=== PATIENT | female | born 1955 | race Caucasian/White ===

== ENCOUNTER → 2020-10-16 12:49 | Outpatient (BNVA) | payer OTHER, SELFPAY | PROVIDERS: PCP Internal Medicine; Visit Provider Nurse Practitioner Family | DX: M47.27 Other spondylosis with radiculopathy, lumbosacral region (principal); M46.1 Sacroiliitis, not elsewhere classified | CPT/HCPCS: 99202 ==

== ENCOUNTER → 2020-10-31 12:55 | Outpatient (BNVA) | payer OTHER, SELFPAY | PROVIDERS: PCP Internal Medicine; Visit Provider Nurse Practitioner Family | DX: M47.27 Other spondylosis with radiculopathy, lumbosacral region (principal); M46.1 Sacroiliitis, not elsewhere classified | CPT/HCPCS: 99212 ==

== ENCOUNTER → 2020-11-17 15:48 | Outpatient (BNVA) | payer OTHER, SELFPAY | PROVIDERS: PCP Internal Medicine; Visit Provider Nurse Practitioner Family | DX: M47.27 Other spondylosis with radiculopathy, lumbosacral region (principal); M46.1 Sacroiliitis, not elsewhere classified | CPT/HCPCS: 99212 ==

== ENCOUNTER → 2020-11-27 14:21 | Outpatient (BNVA) | payer OTHER, SELFPAY | PROVIDERS: PCP Internal Medicine; Visit Provider Nurse Practitioner Family | DX: M47.27 Other spondylosis with radiculopathy, lumbosacral region (principal); M46.1 Sacroiliitis, not elsewhere classified; Z79.899 Other long term (current) drug therapy | CPT/HCPCS: 99212 ==

== ENCOUNTER → 2020-12-27 12:53 | Outpatient (BNVA) | payer OTHER, SELFPAY | PROVIDERS: PCP Internal Medicine; Visit Provider Nurse Practitioner Family | DX: M47.27 Other spondylosis with radiculopathy, lumbosacral region (principal); M46.1 Sacroiliitis, not elsewhere classified | CPT/HCPCS: 99212 ==

== ENCOUNTER → 2021-01-26 12:57 | Outpatient (BNVA) | payer OTHER, SELFPAY | PROVIDERS: PCP Internal Medicine; Visit Provider Nurse Practitioner Family | DX: M47.27 Other spondylosis with radiculopathy, lumbosacral region (principal); M46.1 Sacroiliitis, not elsewhere classified | CPT/HCPCS: 99212 ==

== ENCOUNTER → 2021-02-23 12:53 | Outpatient (BNVA) | payer OTHER, SELFPAY | PROVIDERS: PCP Internal Medicine; Visit Provider Nurse Practitioner Family | DX: M47.27 Other spondylosis with radiculopathy, lumbosacral region (principal); M46.1 Sacroiliitis, not elsewhere classified | CPT/HCPCS: 99212 ==

== ENCOUNTER → 2021-03-27 13:51 | Outpatient (BNVA) | payer OTHER, SELFPAY | PROVIDERS: PCP Internal Medicine; Visit Provider Nurse Practitioner Family | DX: M47.27 Other spondylosis with radiculopathy, lumbosacral region (principal); M46.1 Sacroiliitis, not elsewhere classified | CPT/HCPCS: 99212 ==

== ENCOUNTER → 2021-04-18 12:50 | Outpatient (BNVA) | payer OTHER, SELFPAY | PROVIDERS: PCP Internal Medicine; Visit Provider Nurse Practitioner Family | DX: M47.27 Other spondylosis with radiculopathy, lumbosacral region (principal); M46.1 Sacroiliitis, not elsewhere classified | CPT/HCPCS: 99212 ==

== ENCOUNTER → 2021-05-02 09:30 | Outpatient (BNVA) | payer OTHER, SELFPAY | PROVIDERS: PCP Internal Medicine; Visit Provider Nurse Practitioner Family | DX: Z51.81 Encounter for therapeutic drug level monitoring (principal); M47.27 Other spondylosis with radiculopathy, lumbosacral region; M46.1 Sacroiliitis, not elsewhere classified | CPT/HCPCS: 99212 ==

== ENCOUNTER → 2021-08-27 12:54 | Outpatient (BNVA) | payer OTHER, SELFPAY | PROVIDERS: Visit Provider Psychiatry & Neurology Neurology | DX: G43.909 Migraine, unspecified, not intractable, without status migrainosus (principal); M54.2 Cervicalgia; R41.89 Other symptoms and signs involving cognitive functions and awareness; R46.89 Other symptoms and signs involving appearance and behavior | CPT/HCPCS: 99212 ==

== ENCOUNTER → 2021-11-05 08:29 | Outpatient (BNVA) | payer OTHER, SELFPAY | PROVIDERS: PCP Internal Medicine; Visit Provider Psychiatry & Neurology Neurology | DX: G43.909 Migraine, unspecified, not intractable, without status migrainosus (principal); M54.2 Cervicalgia; R41.89 Other symptoms and signs involving cognitive functions and awareness; R46.89 Other symptoms and signs involving appearance and behavior | CPT/HCPCS: 99212 ==

== ENCOUNTER → 2022-06-10 10:28 | Outpatient (BNVA) | payer OTHER, SELFPAY | PROVIDERS: PCP Internal Medicine; Visit Provider Psychiatry & Neurology Neurology | DX: G43.909 Migraine, unspecified, not intractable, without status migrainosus (principal); M54.2 Cervicalgia; R41.89 Other symptoms and signs involving cognitive functions and awareness; R46.89 Other symptoms and signs involving appearance and behavior; G47.00 Insomnia, unspecified | CPT/HCPCS: 99212 ==

== ENCOUNTER → 2022-10-16 14:30 | Outpatient (BNVA) | payer OTHER, SELFPAY | PROVIDERS: PCP Internal Medicine; Visit Provider Psychiatry & Neurology Neurology | DX: G43.709 Chronic migraine without aura, not intractable, without status migrainosus (principal); M54.2 Cervicalgia; R41.89 Other symptoms and signs involving cognitive functions and awareness; R46.89 Other symptoms and signs involving appearance and behavior; Z79.899 Other long term (current) drug therapy | CPT/HCPCS: 99212 ==

== ENCOUNTER → 2023-01-01 13:28 | Outpatient (BNVA) | payer OTHER, SELFPAY | PROVIDERS: PCP Internal Medicine; Visit Provider Psychiatry & Neurology Neurology | DX: G43.709 Chronic migraine without aura, not intractable, without status migrainosus (principal); M54.2 Cervicalgia; R41.89 Other symptoms and signs involving cognitive functions and awareness; R46.89 Other symptoms and signs involving appearance and behavior; Z79.899 Other long term (current) drug therapy | CPT/HCPCS: 99212 ==

== ENCOUNTER 2024-09-16 15:14 | Outpatient (REF) | payer OTHER, SELFPAY ==
--- OUTSIDE RECORDS SUMMARY | 2024-09-16 16:48 | XMS_ITS | Clinical Summary ---
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; Oral phase dysphagia Discharge Disposition: Home or Self Care 08/09/2024 11:20 AM EST Office Visit [facility] [address] [facility] [address] [place] [phone] Lisa Cruz PA 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 (Primary Dx); Oral phase dysphagia; Chronic constipation; Chronic abdominal pain 08/09/2024 Telephone [facility] [address] [facility] [address] [place] [phone] Lisa Cruz PA from Last 3 Months Surgical History Surgery Date Site/Laterality Comments OTHER SURGICAL HISTORY PROCEDURE: TX CRNEC EXC BRAIN TUMOR INFRATENTORIAL/POST FOSSA OTHER SURGICAL HISTORY PROCEDURE: HISTORICAL SUBTOTAL THYROIDECTOMY BLADDER SUSPENSION PROCEDURE: HISTORICAL BLADDER SUSPENSION HYSTERECTOMY PROCEDURE: TX VAGINAL HYSTERECTOMY UTERUS 250 GM/< OTHER SURGICAL HISTORY PROCEDURE: DECOMPRESS DISC RF LUMBAR; COMMENT: lumnar fusion L4-5 CARPAL TUNNEL RELEASE Left PROCEDURE: TX NEUROPLASTY &/TRANSPOS MEDIAN NRV CARPAL TUNNE CARPAL TUNNEL RELEASE 12/28/2020 Right PROCEDURE: TX NEUROPLASTY &/TRANSPOS MEDIAN NRV CARPAL TUNNE; COMMENT: [...] Info) Description 11/24/2024 1:00 PM EDT Appointment [facility] Endoscopy [address] [place] [id number] Florentino Thurman MD [address] [address] Health Maintenance Due Date Last Done Comments [...] Signed Date: 08/11/2024 09:19 ET Workstation ID: [id number] Transcribed By: Self Edit Transcribed Date: 08/11/2024 [...] Signed Date: 08/11/2024 09:19 ET Workstation ID: [id number] Transcribed By: Self Edit Transcribed Date: 08/11/2024 [...] ID:[id number] Group ID:[id number] Type:Not on file Address: [place] [address] [place] [id number] Care Teams Sign Language Translator Relationship Specialty Start Date End Date Jennifer Ballard NP [address] [facility] [place] [address] PCP - General 02/21/23
--- OUTSIDE RECORDS SUMMARY | 2024-09-16 16:48 | XMS_ITS | Continuity of Care Document ---
Author Organization [facility] Address [address] [facility] [address] [place] [address] Phone [phone] Care Team Providers Care Devops Developer Name Role Phone Jnenifer Ballard N.P. Care Team Information Intelligence Group Supervisor [phone] Social History Type Date Description Comments Sex Unknown Medical Devices Description No Information Available Encounters Description No Information Available Assessments Description No Information Available Plan of Treatment No Information Available Functional Status Description No Information Available Mental Status Description No Information Available Referrals Description No Information Available
--- OUTSIDE RECORDS SUMMARY | 2024-09-16 16:48 | XMS_ITS | Clinical Summary ---
Author Organization [facility] Address [address] [address] Phone Care Team Providers Care Sales Engineering Manager Name Role Phone Elio Jennifer COON Primary Care Provider [phone] Allergies Active Allergy Reactions Criticality Noted Date [...] Office Visit [facility] [address] [address] Solitario Machado MD Hypertension (Primary [...] Visit [facility] [address] [facility] [address] [place] [address] Solitario Machado MD [address] [facility] [address] [place] [address] Health Maintenance Due Date Last [...] Billing Address Personal/Family Self 1955 [address] MCR ([id number]) [place] [phone] [place] [address] MCR ([id number]) Care Teams Sales Engineering Manager Relationship Specialty Start Date End Date Jennifer Ballard NP [address] [place] [address] PCP - General Nurse Practitioner 04/16/24
[2024-09-16 17:58] LABS: MANUAL DIFF FLAG NO
[2024-09-16 18:20] LABS: Basophils Absolute Auto 0.1 X10*3/uL (0.0-0.2); Basophils Percent Auto 1.2 % (0-2); Eosinophils Absolute Auto 0.7 X10*3/uL (0.0-0.4); Eosinophils Percent Auto 6.9 % (0-4); Hemoglobin 12.5 g/dl (12.0-16.0); Imm Gran Abs Auto 0.06 X10*3/uL (0.00-0.03); Imm Gran Pct Auto 0.6 % (0.0-0.4); Lymphocytes Absolute Auto 3.8 X10*3/uL (1.2-4.9); Lymphocytes Percent Auto 37.9 % (20-40); Mean Corpuscular HGB Conc 32.1 g/dl (31.0-35.0); Mean Corpuscular Hemoglobin 28.5 pg (27.0-33.0); Mean Corpuscular Volume 88.8 fL (80.0-98.0); Mean Platelet Volume 9.1 fL (9.4-12.3); Monocytes Absolute Auto 0.6 X10*3/uL (0.1-1.2); Monocytes Percent Auto 5.9 % (2-11); Neutrophils Absolute Auto 4.8 x10*3/uL (2.0-8.3); Neutrophils Percent Auto 47.5 % (45-73); Platelet Count 335 X10*3/uL (160-400); Red Blood Count 4.39 X10*6/uL (4.20-5.50); Red Cell Distribution Width 13.8 % (11.0-16.0)
[2024-09-16 18:45] LABS: Alanine Aminotransferase 13 U/L (0-31); Albumin Level 3.9 g/dL (3.5-5.0); Alkaline Phosphatase 77 U/L (39-117); Anion Gap 12 (12-20); Aspartate Amino Transferase 19 U/L (5-31); Bilirubin Total 0.1 mg/dL (0.0-1.0); Blood Urea Nitrogen 16 mg/dL (9-16); Carbon Dioxide 26 mmol/L (22-29); Chloride 109 mmol/L (96-108); Estimated Glomerular Filt Rate > 60; Glucose Random 92 mg/dL (60-115); Potassium 3.2 mmol/L (3.3-5.1); Sodium 144 mmol/L (135-145); Total Protein 7.3 g/dL (6.5-8.0)
[2024-09-16 18:51] LABS: TSH reflex Free T4 1.27 uIU/mL (0.32-4.0)
[2024-09-16 18:59] LABS: Folate 11.3 ng/mL (> or = 4.0); Vitamin B12 534 pg/mL (200-900)
[2024-09-16 19:02] LABS: Erythrocyte Sedimentation Rate 7 MM/HR (0-20)
[2024-09-20 13:34] LABS: Vitamin D 25-OH, D2 <4 ng/mL; Vitamin D 25-OH, D3 38 ng/mL; Vitamin D 25-OH, Total 38 ng/mL (30-100)
== END 2024-09-16 15:15 | disposition home or self-care (01) ==
LOC: HO.HKASLDS 15:14
PROVIDERS: Visit Provider Psychiatry & Neurology Neurology
DX: R41.3 Other amnesia (principal); R41.89 Other symptoms and signs involving cognitive functions and awareness; R46.89 Other symptoms and signs involving appearance and behavior; G43.709 Chronic migraine without aura, not intractable, without status migrainosus
CPT/HCPCS: 36415; 80053; 82306; 82607; 82746; 84443; 85025; 85652; 99212

== ENCOUNTER 2024-09-16 15:14 | Outpatient (AMB) | payer OTHER, SELFPAY ==
--- NOTE | 2024-09-16 15:21 | MHC.OFFVIS ---
Vital Signs 09/16/24 15:23 Height 5 ft 5 in Weight 135 lb BMI 22.5 BP 148/90 H Blood Pressure Location Rt brachial Position Sitting Pulse 97 Pulse Source Pulse Oximeter Pulse Oximetry (%) 99 Oxygen Delivery Method Room Air Intake Visit Reasons: Follow up Intake Note: Patient following up on Migraines Allergies No Known Allergies Allergy (Verified 09/16/24 15:23) Medication List - Last Reconciled 09/16/24 by Esha Mckeon MD bupropion HCl XL (Wellbutrin XL) 300 mg PO; imgqaoxkrz-soeflvhjmdcrm-letm 50-300-40 mg (Fioricet) 1 cap PO Q8H PRN 30 days fluoxetine 40 mg PO QAM lisinopril 30 mg PO DAILY magnesium oxide 400 mg PO BEDTIME naloxone 4 mg/actuation (Narcan) 4 mg intranasal Q2M ondansetron HCl 4 mg PO Q8H riboflavin (vitamin B2) 400 mg (4 x 100 mg) PO QAM rizatriptan take 1 tab at onset of headache; if no relief may repeat 1 tab after at least 2 hrs; max = 3 tabs/24 hr PO zolpidem 10 mg PO BEDTIME PRN HPI Comments Details: ? 69y/o female comes for follow up of migraines and evaluation of cognitive issues her migraines are fairly controlled . she stopped magnesium , riboflavin . she has 3-4 migraines a month and responds to zomig or fioricet.Zomig is not covered by her insurance now She is accompanied by her who report short term memory issues progressing for past 2 years . ??? She sees Dr Busch for her mood .Mood fluctuates she is also on wellbutrin and prozac . ? PFSH Medical History Memory loss HTN (hypertension) Insomnia Anxiety Depression Goiter Surgical History H/O wrist surgery Hx of cervical spine surgery History of back surgery H/O brain surgery H/O: hysterectomy Family History Mother HTN (hypertension) Hyperlipidemia Stroke Social History Alcohol intake: former Year quit: 22 y Patient Tobacco Use Status: Never used Tobacco Physical Exam Vital Signs: Last Vital Signs Pulse 97 09/16/24 15:23 BP 148/90 H 09/16/24 15:23 Pulse Ox 99 09/16/24 15:23 Oxygen Delivery Method Room Air 09/16/24 15:23 BMI result Body Mass Index 22.5 Const General: cooperative and no acute distress Nutritional Appearance: average body habitus Orientation/consciousness: patient oriented x3 Neck Other: neck tightness posteriorly Neuro General: patient oriented x3, tone normal, moves all extremities, no focal motor deficits and CN's II-XI intact bilaterally Gait exam (Neuro): Antalgic gait present Psych Affect: Anxious affect present Orientation What is the (year) (season) (date) (day) (month)?: year, season, day and month Where are we (state) (county) (town or city) (hospital) (floor)?: state, town or city, hospital/clinic and floor Registration Name of 3 unrelated objects clearly and slowly, then ask patient to repeat all 3 of them. (1st repeat determines score. Make sure they can repeat all three): object 1, object 2 and object 3 Attention & Calculation (CHOOSE ONE) Spell WORLD backwards (DLROW): 3 letters Recall Ask patient to repeat the 3 items from question #3.: object 2 and object 3 Language Show patient a wristwatch & ask what it is. Repeat for pencil.: watch and pencil Ask the patient to repeat the phrase 'No ifs, ands, or buts' after you.: correct Ask the patient to 'take a piece of paper with their right hand' 'fold paper in half' 'place paper on floor': take paper in right hand Print the sentence 'CLOSE YOUR EYES' on a piece. If patient actually closes eyes then score.: followed written direction Give patient a blank piece of paper & ask to write a sentence. Score if it contains a noun & verb.: sentence contains subject and verb Score Score: 22 Assessment & Plan Assessment & Plan (1) Cognitive and behavioral changes: Code(s): R41.89 - Other symptoms and signs involving cognitive functions and awareness; R46.89 - Other symptoms and signs involving appearance and behavior Category: Medical (2) Chronic migraine without aura: Code(s): G43.709 - Chronic migraine without aura, not intractable, without status migrainosus Category: Medical Qualifiers: Status migrainosus presence: without status migrainosus Intractability: not intractable Qualified Code(s): G43.709 - Chronic migraine without aura, not intractable, without status migrainosus Plan Restart magnesium 400mg qhs , Vit B 2 400mg qam . Rizatriptan 10mg as needed MRI brain Labs F/u with Dr. Busch - will refer to cognitive therapy Orders: Orders TSH reflex Free T4 Today R41.3 - Other amnesia Comprehensive Met. Panel Today R41.3 - Other amnesia Erythrocyte Sedimentation Rate Today R41.3 - Other amnesia Vitamin B12 and Folate Today R41.3 - Other amnesia Complete Blood Count Auto Diff Today R41.3 - Other amnesia Vitamin D 25-OH (D2 and D3) Today R41.3 - Other amnesia MR head/brain wo con Today R41.89 - Other symptoms and signs involving cognitive functions and awareness, R46.89 - Other symptoms and signs involving appearance and behavior Referrals Speech and Hearing Referral R41.3 - Other amnesia Medications: New rizatriptan take 1 tab at onset of headache; if no relief may repeat 1 tab after at least 2 hrs; max = 3 tabs/24 hr PO 14 tabs 6RF Refilled magnesium oxide 400 mg PO BEDTIME 30 tabs 6RF riboflavin (vitamin B2) 400 mg (4 x 100 mg) PO QAM 120 tabs 6RF Discontinued galcanezumab-gnlm (Emgality Pen) Discontinued Reason: Patient no longer taking 120 mg subcut .once in 30 days 1 mL 6RF clonazepam Discontinued Reason: Patient no longer taking 0.5 mg PO DAILY PRN 30 tabs 2RF anxiety MDD 1 tab zolmitriptan Discontinued Reason: Patient no longer taking 5 mg PO Q2-4H PRN 10 tabs 6RF migraine headache MDD 4 tabs Coding Level of Care Code Est Pt Level 4 (80545) Complex EM visit Add On G2211 Diagnoses Cognitive and behavioral changes R41.89; R46.89 Chronic migraine without aura without status migrainosus, not intractable G43.709 Status migrainosus presence: without status migrainosus Intractability: not intractable
[2024-09-16 15:23] VITALS: BP 148/90; PULSE 97; O2SAT 99; BMI 22.5
--- OUTSIDE RECORDS SUMMARY | 2024-09-16 16:16 | XMS_ITS | Clinical Summary ---
Author Organization [facility] Address [address] [place] [address] Phone Care Team Providers Care Trim Stencil Maker Name Role Phone Jennifer Ballard NP Primary Care Provider [phone] Allergies No known active allergies Medications pantoprazole (PROTONIX) 40 mg EC tablet TAKE ONE TABLET BY MOUTH TWICE A DAY BEFORE MEALS. HOLD MEDICATION AFTER COMPLETING ANTIBIOTIC TREATMENT FOR H.PYLORI UNTIL BREATH TEST IS COMPLETED 90 tablet 3 05/31/20 24 Active plecanatide (Trulance) 3 mg tablet Take 1 tablet (3 mg total) by mouth 1 (one) time each day. 10/27/19 24 Active dicyclomine (BENTYL) 10 mg capsule Take 1 Capsule by mouth 2 times daily as needed (abdominal cramping). 10/27/19 24 Active bisacodyL (DULCOLAX) 5 mg EC tablet TAKE TWO TABLETS BY MOUTH EVERY DAY AT BEDTIME 06/25/20 21 Active imiquimod (ALDARA) 5 % cream Apply Friday through Friday at night for 6 weeks 03/13/20 17 Active ZOLMitriptan (ZOMIG) 5 mg tablet Take 5 mg by mouth daily as needed. May be repeated after 2 hours. Not to exceed 10mg in 24 hours. Active lisinopril-hyd roCHLOROthiazi de (PRINZIDE,ZEST ORETIC) 20-12.5 mg per tablet Take 1 tablet by mouth 1 (one) time each day. Active buPROPion XL (WELLBUTRIN XL) 300 mg 24 hr tablet Take 300 mg by mouth every morning. Active FLUoxetine (PROzac) 40 mg capsule Take 1 capsule (40 mg total) by mouth 1 (one) time each day. Active QUEtiapine (SEROquel) 400 mg tablet Take 1 tablet (400 mg total) by mouth at bedtime. Active zolpidem (AMBIEN) 10 mg tablet Take by mouth at bedtime as needed. Active cholecalcifero l (VITAMIN D-3) 50 mcg (2,000 unit) capsule Take 1 capsule (2,000 Units total) by mouth 1 (one) time each day. 06/10/20 23 Active amLODIPine (NORVASC) 5 mg tablet Take 1.5 tablets (7.5 mg total) by mouth if needed. 07/11/20 24 Active butalbital-lupe taminophen-caf feine 50-300-40 mg capsule if needed. Active docusate sodium (COLACE) 100 mg capsule Take 1 capsule (100 mg total) by mouth 2 (two) times a day. 05/03/20 24 Active amphetamine-de xtroamphetamin e XR (ADDERALL XR) 5 mg 24 hr capsule if needed. 07/26/20 24 Active lisinopriL (PRINIVIL,ZEST RIL) 10 mg tablet Take 1 tablet (10 mg total) by mouth 2 (two) times a day. 06/08/20 24 Active ondansetron (ZOFRAN) 4 mg tablet TAKE ONE TABLET BY MOUTH EVERY 8 HOURS NEEDED FOR NAUSEA 60 tablet 11 09/13/19 25 Active ondansetron (ZOFRAN) 4 mg tablet Take 1 tablet (4 mg total) by mouth every 8 (eight) hours if needed for nausea. 08/18/19 24 025 Discontinued Active Problems Problem Noted Date Diagnosed Date Carrillo's esophagus 06/29/2024 Chronic idiopathic constipation 06/29/2024 Depression 06/29/2024 Dysphagia 06/29/2024 Fibromyalgia 06/29/2024 Hypertension 06/29/2024 IBS (irritable bowel syndrome) 06/29/2024 Nonulcer dyspepsia 06/29/2024 Osteoarthritis 06/29/2024 Arthritis of carpometacarpal (CMC) joint of righ t thumb 01/09/2021 Carpal tunnel syndrome of right wrist 01/09/2021 Chronic back pain 09/08/2020 Lumbar radiculopathy 09/08/2020 Overview (06/29/2024): Intervertebral disc degeneration, post-laminectomy, lumbar. 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; Oral phase dysphagia Discharge Disposition: Home or Self Care 08/09/2024 11:20 AM EST Office Visit Gastroenterology [facility] [address] [facility] [address] [place] [phone] Lisa Cruz PA 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 (Primary Dx); Oral phase dysphagia; Chronic constipation; Chronic abdominal pain 08/09/2024 Telephone Gastroenterology [facility] [address] [place] [phone] Lisa Cruz PA from Last 3 Months Surgical History Surgery Date Site/Laterality Comments OTHER SURGICAL HISTORY PROCEDURE: TN CRNEC EXC BRAIN TUMOR INFRATENTORIAL/POST FOSSA OTHER SURGICAL HISTORY PROCEDURE: HISTORICAL SUBTOTAL THYROIDECTOMY BLADDER SUSPENSION PROCEDURE: HISTORICAL BLADDER SUSPENSION HYSTERECTOMY PROCEDURE: TN VAGINAL HYSTERECTOMY UTERUS 250 GM/< OTHER SURGICAL HISTORY PROCEDURE: DECOMPRESS DISC RF LUMBAR; COMMENT: lumnar fusion L4-5 CARPAL TUNNEL RELEASE Left PROCEDURE: TN NEUROPLASTY &/TRANSPOS MEDIAN NRV CARPAL TUNNE CARPAL TUNNEL RELEASE 12/28/2020 Right PROCEDURE: TN NEUROPLASTY &/TRANSPOS MEDIAN NRV CARPAL TUNNE; COMMENT: eCTR by Dr. Dsouza HAND SURGERY 12/28/2020 Right PROCEDURE: HISTORICAL HAND SURGERY; COMMENT: Right trapeziectomy and interpositional arthroplasty using FCR tendon COLONOSCOPY 07/18/2021 PROCEDURE: HISTORICAL COLONOSCOPY; COMMENT: negative/adequate prep Medical History Medical History Date Comments Optic neuritis 01/09/2017 DX:Optic neuriti s; COMMENT: Legally blind Hypertension DX:Hypertension Fibromyalgia DX:Fibromyalgia Depression DX:Depression Osteoarthritis DX:Osteoarthriti s Hx of peptic ulcer DX:Hx of pept ic ulcer H/O brain tumor DX:H/O brain mireya or Nonulcer dyspepsia DX:Nonulcer d yspepsia IBS (irritable bowel syndrome) D X:IBS (irritable bowel syndrome) Lumbar radiculopathy 09/08/2020 DX:Lumbar r adiculopathy; COMMENT: Intervertebral disc degeneration, post-laminectomy, lumbar. Chronic back pain 09/08/2020 DX:Chronic zara k pain Carrillo's esophagus DX:Carrillo's esophagus Dysphagia DX:Dysphagia Constipation DX:Constipation Constipation DX:Constipation Dysphagia DX:Dysphagia Social History Tobacco Use Types Packs/Day Years Used Date Smoking Tobacco: Never Smokeless Tobacco: Never Alcohol Use Standard Drinks/Week Comments No 0 (1 standard drink = 0.6 oz pur e alcohol) Comments Unknown Sex and Gender Information Value Date Recorded Sex Assigned at Not on file Legal Sex Female 11:08 PM EST Gender Identity Not on file Sexual Orientation Not on file Obstetrics History Last Filed Vital Signs Vital Sign Reading Time Taken Comments Blood Pressure 132/82 08/09/2024 11:11 AM EST Pulse 78 08/09/2024 11:11 AM EST Temperature - - Respiratory Rate - - Oxygen Saturation - - Inhaled Oxygen Concentration - - Weight 59.9 kg (132 lb) 08/09/2024 11:11 AM EST Height 165.1 cm (5' 5 ) 08/09/2024 11:11 AM EST Body Mass Index 21.97 08/09/2024 11:11 AM EST Plan of Treatment Upcoming Encounters Date Type Department Care Team (Late st Contact Info) Description 11/24/2024 1:00 PM EDT Appointment [facility] Endoscopy [address] [place] [phone] Florentino Thurman MD [address] [address] Health Maintenance Due Date Last Done Comments Breast Cancer Screening 1955 DTaP,Tdap,and Td Vaccines (1 - Tdap) 1974 Zoster Vaccines (1 of 2) 2005 RSV Immunization Patients 60 + Years Old (1 - Risk 60-74 years 1-dose series) 2015 Pneumococcal Vaccine: 50+ Years (2 of 2 - PCV) 01/26/2021 01/27/2020 Cholesterol Screening (Lipid Panel) 06/30/2022 Depression Screening 06/30/2022 Falls Risk Assessment 06/30/2022 Hepatitis C Screening 06/30/2022 Medicare Annual Wellness Visit 06/30/2022 Osteoporosis Screening (Bone Density Screening) 06/30/2022 Social Influencers of Health Screening 06/30/2022 COVID-19 Vaccine (4 - 2023-2 5 season) 2024 11/01/2021, 12/27/2020, 11/28/2020 Influenza Vaccine (#1) 2024 10/08/2023 Hypertension/CHF/CAD Annual BMP Blood Test 08/18/2024 08/18/2023 Colorectal Cancer Screening: Colonoscopy 07/18/2026 07/18/2021 HIB Vaccines Aged Out No longer eligi ble based on patient's age to complete this topic HPV Vaccines Aged Out No longer eligi ble based on patient's age to complete this topic Hepatitis A Vaccines Aged Out No long er eligible based on patient's age to complete this topic Hepatitis B Vaccines Aged Out No long er eligible based on patient's age to complete this topic IPV Vaccines Aged Out No longer eligi ble based on patient's age to complete this topic MMR Vaccines Aged Out No longer eligi ble based on patient's age to complete this topic Meningococcal ACWY Vaccine Aged Out N o longer eligible based on patient's age to complete this topic Meningococcal B Vacine Aged Out No lo nger eligible based on patient's age to complete this topic RSV Immunization Patients Under 20 months Aged Out No longer eligible b ased on patient's age to complete this topic Varicella Vaccines Aged Out No longer eligible based on patient's age to complete this topic Procedures Procedure Name Priority Date/Time Associated Diagnosis Comments XR ABDOMEN 1 VIEW Routine 08/09/2024 12: 23 PM EST 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 Oral phase dysphagia ANNUAL BMP BLOOD TEST Routine 08/18/2023 COLONOSCOPY Routine 07/18/2021 from Last 3 Months or Most Recently Relevant to Health Maintenance Results * XR Abdomen 1 View (08/09/2024 12:23 PM EST) Anatomical Region Laterality Modality Body Radiographic Giuliana ging 08/11/2024 9:17 AM EST Impressions 08/11/2024 9:19 AM EST Extensive fecal residue in the colon without evidence of small bowel obstruction -------- FINAL REPORT -------- Dictated By: Dom Bland Dictated Date: 08/11/2024 09:17 ET Assigned Physician: Dom Bland Reviewed and Electronically Signed By: Dom Bland Signed Date: 08/11/2024 09:19 ET Workstation ID: [id number] Transcribed By: Self Edit Transcribed Date: 08/11/2024 09:17 ET Narrative 08/11/2024 9:19 AM EST EXAMINATION: ABDOMEN CLINICAL INFORMATION: Constipation COMPARISON: None. TECHNIQUE: Frontal view of the abdomen FINDINGS: There is elevation of right hemidiaphragm. The dome of the right hemidiaphragm is not included. There are no suspicious calcifications. There is a large amount of fecal residue throughout the colon including the right colon and rectum. There is no disproportionate small bowel dilation. No evidence of an abnormal mass or collection. There is some degenerative change involving the facets at L5 Procedure Note Dom Bland MD - 08/11/2024 EXAMINATION: ABDOMEN CLINICAL INFORMATION: Constipation COMPARISON: None. TECHNIQUE: Frontal view of the abdomen FINDINGS: There is elevation of right hemidiaphragm. The dome of the righthemidiaphragm is not included. There are no suspicious calcifications. There is a large amount of fecalresidue throughout the colon including the right colon and rectum. Thereis no disproportionate small bowel dilation. No evidence of an abnormal mass or collection. There is some degenerative change involving the facets at L5 IMPRESSION: Extensive fecal residue in the colon without evidence of small bowelobstruction -------- FINAL REPORT -------- Dictated By: Dom Bland Dictated Date: 08/11/2024 09:17 ET Assigned Physician: Dom Bland Reviewed and Electronically Signed By: Dom Bland Signed Date: 08/11/2024 09:19 ET Workstation ID: [id number] Transcribed By: Self Edit Transcribed Date: 08/11/2024 09:17 ET Lisa GARCIA IMG XR PROCEDURES Final Resul t * Annual BMP Blood Test (08/18/2023) Annual BMP Blood Test abstracted Historical Provider HEALTH MAINTENANCE Final Result * Colonoscopy (07/18/2021) Colonoscopy abstracted, no interpretation Anatomical Region Laterality Modality Other Historical Provider HEALTH MAINTENANCE Final Result from Last 3 Months or Most Recently Relevant to Health Maintenance Insurance [employer] MEDICARE Member Subscriber Plan / Payer (Ef fective 2020-Present) Name:Elena Hackett Relation to Subscriber:Self Name:Elena Hackett Payer ID:[id number] Group ID:[id number] Type:Not on file Address: [place] [address] [place] [phone] Care Teams Trim Stencil Maker Relationship Specialty Start Date End Date Jennifer Ballard NP [address] [facility] [address] PCP - General 02/21/23
--- OUTSIDE RECORDS SUMMARY | 2024-09-16 16:16 | XMS_ITS | Continuity of Care Document ---
Author Organization [facility] Address [address] [facility] [address] [place] [address] Phone [phone] Care Team Providers Care Wheel Truer Name Role Phone Jennifer Ballard N.P. Care Team Information Lining Machine Operator [phone] Social History Type Date Description Comments Sex Unknown Medical Devices Description No Information Available Encounters Description No Information Available Assessments Description No Information Available Plan of Treatment No Information Available Functional Status Description No Information Available Mental Status Description No Information Available Referrals Description No Information Available
--- OUTSIDE RECORDS SUMMARY | 2024-09-16 16:16 | XMS_ITS | Clinical Summary ---
Author Organization [facility] Address [address] [address] Phone Care Team Providers Care Diet Clerk Name Role Phone Elio Jennifer COON Primary Care Provider [phone] Allergies Active Allergy Reactions Criticality Noted Date Comments Metoclopramide 04/16/2024 gets too hyper with it Medications amphetamine-dex troamphetamine XR (ADDERALL XR) 5 MG 24 hr capsule TAKE ONE CAPSULE BY MOUTH EVERY DAY AFTER BREAKFAST NEEDED 4 Active ascorbic acid (VITAMIN C) 1000 MG tablet Take 1 tablet by mouth 1 (one) time each day Active B Complex Vitamins (vitamin B complex) tablet TAKE ONE TABLET BY MOUTH EVERY DAY WITH DINNER 4 Active buPROPion XL (WELLBUTRIN XL) 300 MG 24 hr tablet Take 300 mg by mouth every morning Active Cholecalciferol 50 MCG (2000 UT) capsule Take 1 capsule by mouth 1 (one) time each day Active docusate sodium (COLACE) 100 MG capsule Take 100 mg by mouth in the morning and 100 mg in the evening. 4 Active FLUoxetine (PROzac) 40 MG capsule TAKE ONE CAPSULE BY MOUTH EVERY DAY AFTER BREAKFAST Active fluticasone (FLONASE) 50 MCG/ACT nasal spray Administer 2 sprays into each nostril 1 (one) time each day Active lisinopril 10 MG tablet Take 10 mg by mouth in the morning and 10 mg in the evening. Active magnesium oxide (MAG-OX) 400 MG tablet Take 1 tablet by mouth at bed time 4 Active ondansetron (ZOFRAN) 4 MG tablet Take 4 mg by mouth every 8 (eight) hours if needed for nausea Active pantoprazole (PROTONIX) 40 MG EC tablet TAKE ONE TABLET BY MOUTH TWICE A DAY BEFORE MEALS. HOLD MEDICATION AFTER COMPLETING ANTIBIOTIC TREATMENT FOR H. PYLORI UNTIL BREATH TEST IS Active QUEtiapine (SEROquel) 400 MG tablet Take 400 mg by mouth every night Active zolpidem (AMBIEN) 10 MG tablet TAKE ONE TABLET BY MOUTH EVERY DAY AT BEDTIME NEEDED ONLY Active Butalbital-APAP -Caffeine 50-300-40 MG capsule TAKE ONE CAPSULE BY MOUTH EVERY 8 HOURS NEEDED FOR PAIN X 30 DAYS Active amLODIPine (NORVASC) 5 MG tablet Take 1.5 tablets (7.5 mg total) by mouth 1 (one) time each day 135 tablet 3 4 06/26/20 25 Active Active Problems Problem Noted Date Diagnosed Date Hypertensive heart and renal disease with (congestive) heart failure 04/15/2024 Chronic kidney disease stage 3 04/15/2024 Encounters Date Type Department Care Team Description 07/01/2024 4:00 PM EST [facility] [address] [address] Solitario Machado MD Hypertension (Primary Dx); Simple renal cyst from Last 3 Months Family History Medical History Relation Comments Heart disease Father Hypertension Mother Kidney disease Mother Relation Status Comments Father Mother Social History Tobacco Use Types Packs/Day Years Used Date Smoking Tobacco: Never Alcohol Use Standard Drinks/Week Comments No 0 (1 standard drink = 0.6 oz pur e alcohol) Comments Unknown Sex and Gender Information Value Date Recorded Sex Assigned at Not on file Legal Sex Female 5:14 PM EST Gender Identity Not on file Sexual Orientation Not on file Last Filed Vital Signs Vital Sign Reading Time Taken Comments Blood Pressure 198/100 07/01/2024 4:01 PM EST Pulse 82 07/01/2024 4:01 PM EST Temperature - - Respiratory Rate 98 04/16/2024 10:31 AM EDT Oxygen Saturation - - Inhaled Oxygen Concentration - - Weight 56.7 kg (125 lb) 07/01/2024 4:01 PM EST Height - - Body Mass Index - - Plan of Treatment Upcoming Encounters Date Type Department Care Team (Late st Contact Info) Description 12/30/2024 2:00 PM EDT [facility] Visit [facility] [address] [facility] [address] [place] [address] Solitario Machado MD [address] [facility] [address] [place] [address] Health Maintenance Due Date Last Done Comments Breast Cancer Screening 1955 Colorectal Cancer Screening: Annual FOBT 2004 Colorectal Cancer Screening: Colonoscopy 2004 Colorectal Cancer Screening: Sigmoidoscopy 2004 Pneumococcal Vaccine: 65+ Ye ars (2 of 2 - PCV) 01/26/2021 01/27/2020 Influenza Vaccine (#1) 2024 Hepatitis B Vaccine Aged Out No longe r eligible based on patient's age to complete this topic Insurance * Guarantor: Elena Hackett Account Type Relation to Patient Date of Phone Billing Address Personal/Family Self [address] MCR ([id number]) [place] [phone] [place] [address] MCR ([id number]) Care Teams Diet Clerk Relationship Specialty Start Date End Date Jennifer Ballard NP [address] [place] [phone] PCP - General Nurse Practitioner 04/16/24
--- OUTSIDE RECORDS SUMMARY | 2024-09-16 16:16 | XMS_ITS | Continuity of Care Document ---
Author Organization [facility] ter Address [address] [place] [address]- Care Team Providers Care Loft Worker Head Name Role Phone Elio COON, Jennifer Boston Primary Care Phys[id number] Date([facility]): 06/03/24 - 08/28/[address] [address]- Attending Physician: Jennifer Ballard NP Admitting Physician: Jennifer Ballard NP Referring Physician: Jennifer Ballard NP Encounter Type: Pre-Outpt Allergies, Adverse Reactions, Alerts Substance Criticality Severity Reaction Reaction Severity Status Reglan 1 Active 1gets too hyper with it Immunizations Given and Recorded Vaccine Date Status Refusal Reason influenza virus vaccine, inactivated 10/08/23 Give n SARS-CoV-2 (COVID-19) mRNA-1273 vaccine 11/01/21 R ecorded SARS-CoV-2 (COVID-19) mRNA-1273 vaccine 12/27/20 R ecorded SARS-CoV-2 (COVID-19) mRNA-1273 vaccine 11/28/20 R ecorded pneumococcal 23-valent vaccine 01/27/20 Given Medications acetaminophen/butalbital/caffeine 300 mg-50 mg-40 mg oral capsule 1 capsule, By Mouth, Every 8 hours, PRN Pain , Moderate, TAKE ONE CAPSULE BY MOUTH EVERY 8 HOURS ASNEEDED FOR PAIN Start Date: 10/07/23 Status: Ordered Repeat number: 1 Amitiza 24 mcg oral capsule 1 capsule = 24 mcg, By Mouth, 2 times a day, # 60 capsule, 0 Refills, Maintenance, 10/12/23 10:26:00AM EDT, Capsule, [id number], Partial fill upon patient request if the prescription is for a schedule II opioid drug., 165, cm, 10/12/23 8:44:00 EDT, Height, 57, kg, 10/07/23 22:51:00 EDT, Dry Weight Start Date: 10/12/23 Status: Ordered Quantity: 60.0 Unit: capsule Repeat number: 1 amLODIPine 5 mg oral tablet 1 tablet, By Mouth, Daily, # 30 tablet, 2 Refills, Maintenance, 05/19/24 12:26:00 PM EDT, [facility], 165, cm, 01/27/24 15:42:00 EDT, Height, 57, kg, 10/07/23 22:51:00 EDT, Dry Weight Start Date: 05/19/24 Status: Ordered Quantity: 30.0 Unit: tablet Repeat number: 1 buPROPion 300 mg/24 hours (XL) oral tablet, extended release 1 tablet = 300 mg, By Mouth, Daily, TAKE ONE TABLET BY MOUTH EVERY DAY IN THE MORNING Start Date: 02/21/20 Status: Ordered Repeat number: 1 D3 50 mcg (2000 intl units) oral capsule 1 capsule, By Mouth, Daily, # 30 capsule, 5 Refills, Maintenance, 06/10/23 9:31:00 PM EST, [facility], 165, cm, 02/19/23 16:08:00 EDT, Height, 59.3, kg, 06/02/22 9:17:00 EST, Dry Weight Start Date: 06/10/23 Status: Ordered Quantity: 30.0 Unit: capsule Repeat number: 1 dicyclomine 10 mg oral capsule 1 capsule = 10 mg, By Mouth, 2 times a day, PRN Other, TAKE ONE CAPSULE BY MOUTH TWICE A DAY NEEDED FOR CRAMPS Start Date: 02/21/20 Status: Ordered Repeat number: 1 docusate sodium 100 mg oral capsule 1 capsule, By Mouth, 2 times a day, # 60 capsule, 11 Refills, Maintenance, 01/01/24 10:50:00 AM EDT, [facility], 165, cm, 10/22/23 16:27:00 EDT, Height, 57, kg, 10/07/23 22:51:00 EDT, Dry Weight Start Date: 01/01/24 Status: Ordered Quantity: 60.0 Unit: capsule Repeat number: 12 FLUoxetine 40 mg oral capsule 1 capsule = 40 mg, By Mouth, Daily, TAKE ONE CAPSULE BY MOUTH EVERY DAY IN THE MORNING Start Date: 02/21/20 Status: Ordered Repeat number: 1 lisinopril 10 mg oral tablet 1, tablet, By Mouth, 2 times a day, # 180 tablet, Refills 1, Maintenance, 03/06/24 6:55:00 AM EDT, Route to Pharmacy Electronically, [facility], 165, cm, 01/27/24 15:42:00 EDT, Height, 57, kg, 10/07/23 22:51:00 EDT, Dry Weight Start Date: 03/06/24 Status: Ordered Quantity: 180.0 Unit: tablet Repeat number: 1 magnifying glass magnifying glass, See Instructions, # 1 each, Refills 0, Tot. Refills 0, Maintenance, Use magnifying glass to assist with reading, 06/17/22 2:49:00 PM EST, Supply Start Date: 06/17/22 Status: Ordered Quantity: 1.0 Unit: each Repeat number: 1 Indication: Unspecified visual loss multivitamin Vitamin B Complex oral tablet 1 tablet, TAKE ONE TABLET BY MOUTH WITH DINNER EVERY DAY Start Date: 01/27/24 Status: Ordered Repeat number: 1 ondansetron 4 mg oral tablet 1 tablet, By Mouth, Daily, # 30 tablet, 3 Refills, Maintenance, 07/17/23 12:00:00 PM EST, [facility], 165, cm, 06/12/23 14:05:00 EST, Height, 59.3, kg, 06/02/22 9:17:00 EST, Dry Weight Start Date: 07/17/23 Status: Ordered Quantity: 30.0 Unit: tablet Repeat number: 4 pantoprazole 40 mg oral delayed release tablet 1 tablet = 40 mg, By Mouth, 2 times a day, 0 Refills, Maintenance, 10/07/23 11:41:00 PM EDT Start Date: 10/07/23 Status: Ordered Repeat number: 1 QUEtiapine 400 mg oral tablet 1 tablet = 400 mg, By Mouth, Daily at bedtime, TAKE ONE TABLET BY MOUTH EVERY DAY AT BEDTIME Start Date: 10/07/23 Status: Ordered Repeat number: 1 ZOLMitriptan 5 mg oral tablet See Instructions, TAKE ONE TABLET BY MOUTH AT ONSET OF MIGRAINE. MAY REPEAT ONCE IN 2 HOURS. MAX OF2 TABLETS IN 24 HOURS., # 12 tablet, 1 Refills, [facility], 165, cm, 05/03/21 13:43:00 EDT, Height, 55.9, kg, 04/07/21 18:21:00 EDT, Dry Weight Start Date: 08/23/21 Status: Ordered Quantity: 12.0 Unit: tablet Repeat number: 1 zolpidem 10 mg oral tablet 1 tablet = 10 mg, By Mouth, Daily at bedtime, PRN as needed for sleep, TAKE ONE TABLET BY MOUTH AT BEDTIME ONLY NEEDED Start Date: 02/21/20 Status: Ordered Repeat number: 1 Problem List Condition Confirmation Course Effective Dates Status H ealth Status Informant Acquired renal cystic disease Confirmed Active Cataract Confirmed Active Chronic constipation Confirmed Active Chronic cystitis Confirmed Active Chronic sinusitis Confirmed Active Depressive disorder Confirmed Active Dizziness Confirmed Active Esophageal dysmotility Confirmed Active Fibromyalgia Confirmed Active Gastroesophageal reflux disease Confirmed Active RJEI (generalized anxiety disorder) Confirmed Active Hearing loss Confirmed Active Herpes simplex Confirmed Active Hypertensive disorder Confirmed Active Intermittent tremor Confirmed Active Irritable bowel syndrome Confirmed Active Legal blindness Confirmed Active Low back pain Confirmed Active Microscopic hematuria Confirmed Active Migraine Confirmed Active Non-toxic multinodular goiter Confirmed Active Osteopenia Confirmed Active Osteoporosis Confirmed Active Lumbar disc herniation Confirmed Active Recurrent major depression Confirmed Active Lumbar spinal stenosis Confirmed Active Spinal stenosis, lumbar Confirmed Active Urinary incontinence Confirmed Active Vitamin D deficiency Confirmed Active Social History Social History Type Response Tobacco Other: denies. Sex Sex Representation Female (finding) Patient Care team information Care Team Personnel Name: Jennifer Ballard NP Position: [facility] PCO Associate Professional Member Role: PCP Address: [address] [place] [address] Primary [place], [place] [address] Telecom: Name: Melony Rosa Position: [facility] Office Staff Member Role: Lifetime Consulting Physician Name: Wen Vasques Position: [facility] Nurse Member Role: Lifetime Consulting Physician Name: Soledad Martino RN Position: [facility] RN Member Role: Primary Care Nurse Name: Aleksandra Bailey RN Position: [facility] OB RN Member Role: Primary Care Nurse Care Team Related Persons Name: STEPAN MENDOSA Name: LEORA RODRÍGUEZ Insurance Providers Guarantor name: [facility] Information #: 1 Payer: Member Number: [id number] Policy Number: NA Group Number: [facility] Information #: 2 Payer: NA Member Number: [id number] Policy Number: NA Group Number: NA
== END 2024-09-16 16:05 | disposition home or self-care (01) ==
PROVIDERS: Visit Provider Psychiatry & Neurology Neurology
DX: R41.89 Other symptoms and signs involving cognitive functions and awareness (principal); R46.89 Other symptoms and signs involving appearance and behavior; G43.709 Chronic migraine without aura, not intractable, without status migrainosus
CPT/HCPCS: 99214; G2211

== ENCOUNTER 2025-01-17 14:51 | Outpatient (AMB) | payer OTHER, SELFPAY ==
[2025-01-17 15:02] VITALS: BP 180/110; PULSE 102; O2SAT 97; BMI 22.3
--- NOTE | 2025-01-17 15:02 | MHC.OFFVIS ---
Vital Signs 01/17/25 15:02 Height 5 ft 5 in Weight 134 lb 2 oz BMI 22.3 BP 180/110 H Blood Pressure Location Rt brachial Position Sitting Pulse 102 H Pulse Source Pulse Oximeter Pulse Oximetry (%) 97 Oxygen Delivery Method Room Air Intake Visit Reasons: 3mon follow-up Intake Note: Patient here for a follow-up, no med changes. Physician Compensation Analyst Required: No Accompanied by: Spouse Allergies metoclopramide (From Reglan) Allergy (Mild, Verified 01/17/25 15:09) Anxiety Do you need a note to return to daycare/school/sports/work: No HPI Comments Details: 69 y/o female comes for follow up of migraines and evaluation of cognitive issues. She is accompanied by her Jac who helps with history and reports progressive stm issues for the past 2 years. 09/2024 MRI rayus reviewed with patient today she has a h/o chronic micro-vascular ischemia HST c/w no evidence of NAVJOT. She is legally blind, and her vision is blurry at baseline. She has tried Zomig in the past, now on Rizatriptan. She was using Emgality with good effect as it decreased both the intensity and frequency of her migraines. She is also on Fiorecet as it helps to take the edge off for chronic migraines. She also tried Botox and it was very effective, would like to try it again. Migraines are more frequent now, 4x times a week, with headaches daily and they can last about 4-5 hours with photophobia/ phonophobia and 7/10 pain. She has nausea and vomiting managed with Zofran and dicyclomine which helps with vertigo and gait instability also. Prodrome to migraines:She continues to have Auras with halo like flashing lights. Preventative Migraine protocol: Rizatriptan and Fiorecet She continues to take mg 400mg daily and B2 200mg though at times will forget to take her medications. Jac has to monitor her medication adherence. She says her memory is getting worse, stm with orientation, word finding difficulty, repeats the same questions, has confusion and lacks concentration, focus and attention to detail, she gets lost easily in conversations. She sees Dr Busch every 3 months for her mood, takes Wellbutrin and prozac for panic attacks, depression and anxiety. CBT will be starting this week and she has an appt for speech evaluation. She is independent in all ADLs, she does not climb stairs due to her gait and balance difficulties. Her diet is poor, Jac makes her eat and plans well balanced meals for her, as she will drink Ensure all day. BP 180/110 pulse is 102, patient instructed to go to the ER today for further management and Jac insists to take her. ? PFSH Medical History Memory loss HTN (hypertension) Insomnia Anxiety Depression Goiter Surgical History H/O wrist surgery Hx of cervical spine surgery History of back surgery H/O brain surgery H/O: hysterectomy Family History Mother HTN (hypertension) Hyperlipidemia Stroke Social History Alcohol intake: former Year quit: 22 y Patient Tobacco Use Status: Never used Tobacco Physical Exam Vital Signs: Last Vital Signs Pulse 102 H 01/17/25 15:02 BP 180/110 H 01/17/25 15:02 Pulse Ox 97 01/17/25 15:02 Oxygen Delivery Method Room Air 01/17/25 15:02 BMI result Body Mass Index 22.3 Const General: cooperative and no acute distress Nutritional Appearance: average body habitus Orientation/consciousness: oriented to person and oriented to place HEENT Face and sinus: Yes face symmetric Neck Other: neck tightness posteriorly Neck: Yes other (pain on ext and flexion) Resp Effort & Inspection: normal respiratory effort and able to speak in complete sentences Neuro Other: pain on ext and flexion of neck, oreinted to person and place. RF LE 3+ General: oriented to person, oriented to place, tone normal, moves all extremities, no focal motor deficits and CN's II-XI intact bilaterally Cranial nerves: Yes Ability to bilaterally elevate shoulders present Gait exam (Neuro): Antalgic gait present Motor exam (neuro): Abnormal motor strength present and Abnormal muscle tone present Deep tendon reflexes (DTR's): Right patellar reflex intensity grade: 3+, Left patellar reflex intensity grade: 3+, Right ankle reflex intensity grade: 3+ and Left ankle reflex intensity grade: 3+ Psych Appearance: well kempt Affect: Anxious affect present Thought process: Circumstantial thought process present Results Reviewed Results Reviewed: MRI 09/2024 Rayus - R. sided old craniotomy defect with general volume loss, and mild ventriculomegaly and cortical atrophy as before scattered non specific periventricular T2 hyperintense foci suggestive of chronic microvascular ischemic or gotic changes Slightly progressed since last exam. Assessment & Plan Assessment & Plan (1) Cognitive and behavioral changes: Comment: Cerefolin 1pill daily for 90 days. Code(s): R41.89 - Other symptoms and signs involving cognitive functions and awareness; R46.89 - Other symptoms and signs involving appearance and behavior Category: Medical (2) Chronic migraine without aura: Comment: zolmitriptan not effective Code(s): G43.709 - Chronic migraine without aura, not intractable, without status migrainosus Category: Medical Qualifiers: Intractability: not intractable Status migrainosus presence: without status migrainosus Qualified Code(s): G43.709 - Chronic migraine without aura, not intractable, without status migrainosus Plan Cognitive decline MRI is reviewed with patient today. start cerefolin brain wellness 1pill daily for 90 days. Labs reviewed with patient today. Migraines chronic, Fiorecet and Rizatriptan Will start Emgality again as it worked well, and would like to continue this medication. Sumatriptan not effective. Ubrelvy pending? Restart magnesium 400mg qhs , Vit B 2 400mg qam . Rizatriptan 10mg as needed BP is elevated to 180/110 beginning of exam and end of exam, patient directed to the ER for assessment and treatment. Labs reviewed with patient. F/u with Dr. Busch - will refer to cognitive behavior therapy Medications: New galcanezumab-gnlm (Emgality Pen) loading dose is 120ml (2 auto injector pens) - given once subcutaneously, Maintenance dose is 120ml given monthly. 240 mg (2 mL) subcut ONCE 2 mL 0RF chronic headaches MDD 240ml G43.709 - Chronic migraine without aura, not intractable, without status migrainosus hptsxsnnbe-qefpjrf-C-mefolate 600-2-6 mg (Cerefolin Brain Wellness) take one tablet daily at bedtime 1 tab PO BEDTIME 90 tabs 1RF cognitive decline 3 months MDD 1 tablet R41.89 - Other symptoms and signs involving cognitive functions and awareness, R46.89 - Other symptoms and signs involving appearance and behavior Patient Instructions: Sleep Hygiene provided: set a scheduled bedtime and wake time to help regulate the circadian rhythm and balance the release of pituitary hormones. Sleep in a dark room, temperatures below 68 degrees, and no devices n bed. Limit caffeinated products 6 hours prior to bed, and limit fluids 2-4 hours prior to bed. Gentle night yoga, diffusing essential oils, and playing soft music can be relaxing. Coding Level of Care Code Est Pt Level 4 (03306) Complex EM visit Add On G2211 Diagnoses Cognitive and behavioral changes R41.89; R46.89 Chronic migraine without aura without status migrainosus, not intractable G43.709 Intractability: not intractable Status migrainosus presence: without status migrainosus Time Spent (min) 45 Comment BP is elevated today directed to the ER
--- OUTSIDE RECORDS SUMMARY | 2025-01-17 16:23 | XMS_ITS | Clinical Summary ---
Author Organization [facility] Address [address] [address] Phone Care Team Providers Care Lawnmower Mechanic Name Role Phone Jennifer Ballard NP Primary Care Provider [phone] Allergies Active Allergy Reactions Criticality Noted Date Comments Metoclopramide 04/16/2024 gets too hyper with it Medications amphetamine-de xtroamphetamin e XR (ADDERALL XR) 5 MG 24 hr [...] 300 mg by mouth every morning Active Cholecalcifero l 50 MCG (2000 UT) capsule Take 1 [...] EVERY DAY AT BEDTIME NEEDED ONLY Active Butalbital-APA P-Caffeine 50-300-40 MG capsule TAKE ONE CAPSULE BY MOUTH EVERY 8 HOURS NEEDED FOR PAIN X 30 DAYS Active amLODIPine (NORVASC) 10 MG tablet Take 1 tablet (10 mg total) by mouth 1 (one) time each day 90 tablet 3 5 12/26/19 26 Active amLODIPine (NORVASC) 5 MG tablet Take 1.5 tablets (7.5 mg total) by mouth 1 (one) time each day 135 tablet 3 4 12/31/19 25 Discontinu ed(Reorder (does not appear on AVS)) Active Problems Problem Noted Date Diagnosed Date Hypertensive heart and renal disease with (congestive) heart failure 04/15/2024 Chronic kidney disease stage 3 04/15/2024 Encounters Date Type Department Care Team Description 12/30/2024 2:00 PM EDT Office Visit [facility] [address] [address] Solitario Machado MD Hypertension (Primary [...] Sign Reading Time Taken Comments Blood Pressure 166/84 12/30/2024 1:51 PM EDT Pulse 86 12/30/2024 1:51 PM EDT Temperature - - Respiratory Rate 98 04/16/2024 10:31 AM EDT Oxygen Saturation - - Inhaled Oxygen Concentration - - Weight 59.9 kg (132 lb) 12/30/2024 1:51 PM EDT Height - - Body Mass Index - - Plan of Treatment Upcoming Encounters Date Type Department Care Team (Late st Contact Info) Description 06/29/2025 2:15 PM EST Office Visit [facility] [address] [place] [address] Solitario Machado MD [address] [address] Health Maintenance Due Date Last Done Comments Breast Cancer Screening 1955 Colorectal Cancer Screening: Annual FOBT 2004 Colorectal Cancer Screening: Colonoscopy 2004 Colorectal Cancer Screening: Sigmoidoscopy 2004 Pneumococcal Vaccine: 50+ Ye ars (2 of 2 - PCV) 01/26/2021 01/27/2020 Influenza Vaccine (Season Ended) 2025 Pneumococcal Vaccine: Peds ( 0 to 5 Years) and At-Risk Patients (6 to 49 Years) Discontinued 01/27/2020 Hepatitis B Vaccine Aged Out No longe r eligible based on patient's age to complete this topic Procedures Procedure Name Priority Date/Time Associated Diagnosis Comments RENAL FUNCTION PANEL (EXTERNAL LAB ENTRY) Routine 12/17/2024 from Last 3 Months Results * Renal Function Panel (External Lab) (12/17/2024) Glucose 78 mg/dL BUN 20 mg/dL eGFR 80 BUN/Creatinine Ratio 25 Sodium 143 mEq/L Potassium 4.7 mEq/L Chloride 104 Carbon Dioxide 20 mmol/L Calcium 9.4 mg/dL Phosphorus, Serum 3.8 mg/dL Albumin (Blood) 4.4 g/dL Creatinine 0.80 mg/dL Anion Gap 19.0 Blood 12/17/2024 us Historical Provider LAB BLOOD ORDERABLES Irina barillas Result from Last 3 Months Insurance [facility] ([id number]) [facility] ([id number]) Care Teams Lawnmower Mechanic Relationship Specialty Start Date End Date Jennifer Ballard NP [address] [place] [id number] PCP - General Nurse Practitioner 04/16/24
== END 2025-01-17 16:11 | disposition home or self-care (01) ==
LOC: HO.HSMS 14:52
PROVIDERS: Absent Provider Physician Assistant Medical; Visit Provider Physician Assistant Medical
DX: R41.89 Other symptoms and signs involving cognitive functions and awareness (principal); R46.89 Other symptoms and signs involving appearance and behavior; G43.709 Chronic migraine without aura, not intractable, without status migrainosus
CPT/HCPCS: 99214; G2211

== ENCOUNTER → 2025-01-17 14:51 | Outpatient (BNVA) | payer OTHER, SELFPAY | PROVIDERS: Absent Provider Physician Assistant Medical; Visit Provider Physician Assistant Medical | DX: G43.709 Chronic migraine without aura, not intractable, without status migrainosus (principal); R41.89 Other symptoms and signs involving cognitive functions and awareness; R46.89 Other symptoms and signs involving appearance and behavior | CPT/HCPCS: 99212 ==

== ENCOUNTER 2025-04-21 13:39 | Outpatient (AMB) | payer OTHER, SELFPAY ==
[2025-04-21 14:03] VITALS: BP 126/76; PULSE 96; O2SAT 98; BMI 21.9
--- NOTE | 2025-04-21 14:03 | MHC.OFFVIS ---
Vital Signs 04/21/25 14:03 Height 5 ft 5 in Weight 131 lb 6 oz BMI 21.9 BP 126/76 Blood Pressure Location Lt brachial Position Sitting Pulse 96 Pulse Source Pulse Oximeter Pulse Oximetry (%) 98 Oxygen Delivery Method Room Air Intake Visit Reasons: 3m follow up Intake Note: Patient presents follow up Cognitive/Migraine medication. Patient stated that cerefolin is to expensive and looking to see if there is something else Accompanied by: Spouse Allergies metoclopramide (From Reglan) Allergy (Mild, Verified 04/21/25 14:08) Anxiety HPI Comments Details: 69 y/o female comes for follow up of migraines and evaluation of cognitive issues. Interval Medical History she had Ischemic colitis, and sepsis, she was hospitalized for 2 months at [facility], then rehab for [address] [place] [address]. She is accompanied by her Jac who helps with history and reports progressive stm issues for the past 2 years. 09/2024 MRI rayus reviewed with patient today she has a h/o chronic micro-vascular ischemia HST c/w no evidence of NAVJOT. She is legally blind bilaterally, and her vision is blurry at baseline. She has tried Zomig in the past, and now on Rizatriptan. She never started Emgality due to insurance and hospitalization. Migraines have decreased to 1-2x per month and alway 10/10 in intensity. She take Fiorecet as it helps to take the edge off for chronic migraines, which last 4 hours or until she goes to sleep. Migraines Baseline She has photo/phonophobia, n/v managed with Zofran and dicyclomine which also helps with vertigo and gait instability. Prodrome to migraines: Auras with flashing lights and halos. Preventative Migraine protocol: Rizatriptan 10mg prn episodes. Fiorecet is her chronic migraine medication. She continues to take magnesium 400mg daily, Jac has to monitor her medication adherence as she forgets. She says her memory is getting worse, will walk into a room and forgets why she is there. She is not oriented to time and place. Has difficulty with word recall.Repeats the same questions, gets lost in conversations and has confusion. She lacks attention to detail and loses concentration, especially with tasks requiring focus. She sees Dr Busch every 3 months for her mood, takes Wellbutrin and prozac for panic attacks, depression and anxiety, though well managed with medication. We discussed CBT andrea and [email or web address] to find a therapist. She is independent in all ADLs, she does not climb stairs due to her gait and balance difficulties. She has difficulty with fine motor coordination, weakness of hands and dropping things. Can not button her shirt and zip up a jacket. Her diet is poor, Jac makes her eat and plans well balanced meals for her, as she will drink Ensure all day. ? PFSH Medical History Sepsis Memory loss HTN (hypertension) Insomnia Anxiety Depression Goiter Surgical History H/O wrist surgery Hx of cervical spine surgery History of back surgery H/O brain surgery H/O: hysterectomy Family History Mother HTN (hypertension) Hyperlipidemia Stroke Social History Alcohol intake: former Year quit: 22 y Patient Tobacco Use Status: Never used Tobacco Physical Exam Vital Signs: Last Vital Signs Pulse 96 04/21/25 14:03 BP 126/76 04/21/25 14:03 Pulse Ox 98 04/21/25 14:03 Oxygen Delivery Method Room Air 04/21/25 14:03 BMI result Body Mass Index 21.9 Const General: cooperative and no acute distress Nutritional Appearance: average body habitus Orientation/consciousness: oriented to person and oriented to place HEENT Face and sinus: Yes face symmetric Neck Other: neck tightness posteriorly Neck: Yes other (pain on ext and flexion) Resp Effort & Inspection: normal respiratory effort and able to speak in complete sentences Neuro Other: pain on ext and flexion of neck, oreinted to person and place. RF LE 3+ General: oriented to person, oriented to place, tone normal, moves all extremities, no focal motor deficits and CN's II-XI intact bilaterally Cranial nerves: Yes Ability to bilaterally elevate shoulders present Gait exam (Neuro): Antalgic gait present Motor exam (neuro): Abnormal motor strength present and Abnormal muscle tone present Deep tendon reflexes (DTR's): Right patellar reflex intensity grade: 3+, Left patellar reflex intensity grade: 3+, Right ankle reflex intensity grade: 3+ and Left ankle reflex intensity grade: 3+ Psych Appearance: well kempt Affect: Anxious affect present Thought process: Circumstantial thought process present Assessment & Plan Assessment & Plan (1) Cognitive and behavioral changes: Comment: Cerefolin 1pill daily for 90 days. Discontinued Code(s): R41.89 - Other symptoms and signs involving cognitive functions and awareness; R46.89 - Other symptoms and signs involving appearance and behavior Category: Medical (2) Chronic migraine without aura: Comment: zolmitriptan not effective, now taking rizatriptan Code(s): G43.709 - Chronic migraine without aura, not intractable, without status migrainosus Category: Medical Qualifiers: Intractability: not intractable Status migrainosus presence: without status migrainosus Qualified Code(s): G43.709 - Chronic migraine without aura, not intractable, without status migrainosus Plan Cognitive decline MRI is reviewed with patient today. Cerefolin discontinued due to cost. Labs reviewed with patient today. Migraines acute treatment Rizatriptan for chronic migraines continue Fiorecet. Emgality not started due to hospitalization and Sumariptan was not effective she had s/e of nausea. Restart magnesium 400mg qhs , Vit B 2 400mg qam. F/u with Dr. Busch - will refer to cognitive behavior therapy, and [email or web address], best to pair CBT with medications. HST is inconclusive. PETScan for lequembi or Kisunla treatment discussed with Jac and pt. not certain if pt is a good candidate, h/o of craniotomy, ventriculomegaly and microvascular ischemic diseas with atrophy of the brain, and volume loss. Will monitor. MMSE in Aug 2024 and mild cognitive impairment f/u in 3months. Orders: Orders PET Brain beta amyloid Today R41.89 - Other symptoms and signs involving cognitive functions and awareness, R46.89 - Other symptoms and signs involving appearance and behavior Medications: Refilled [id number] 50-300-40 mg (Fioricet) [place] APPROVED 09/03/24-12/02/25 1 cap PO Q8H PRN 20 caps 1RF pain 30 days magnesium oxide 400 mg PO BEDTIME 30 tabs 6RF riboflavin (vitamin B2) 400 mg (4 x 100 mg) PO QAM 120 tabs 6RF rizatriptan take 1 tab at onset of headache; if no relief may repeat 1 tab after at least 2 hrs; max = 3 tabs/24 hr PO 14 tabs 6RF Coding Level of Care Code Est Pt Level 4 (43367) Diagnoses Cognitive and behavioral changes R41.89; R46.89 Chronic migraine without aura without status migrainosus, not intractable G43.709 Intractability: not intractable Status migrainosus presence: without status migrainosus
--- OUTSIDE RECORDS SUMMARY | 2025-04-21 18:11 | XMS_ITS | Clinical Summary ---
Author Organization [facility] Address [address] [address] Phone Care Team Providers Care Adult Health Clinical Nurse Specialist Name Role Phone Elio Jennifer COON Primary Care Provider [phone] Allergies Active Allergy Reactions Criticality Noted Date [...] 90 tablet 3 5 12/26/19 26 Active Active Problems Problem Noted Date Diagnosed Date Hypertensive heart and renal disease with (congestive) heart failure 04/15/2024 Chronic kidney disease stage 3 04/15/2024 Encounters Date Type Department Care Team Description 02/01/2025 Telephone [facility] [address] [phone] Lisbeth Ashby from Last 3 Months Family History Medical [...] Upcoming Encounters Date Type Department Care Team ([facility] st Contact Info) Description 06/29/2025 2:15 PM EST Office Visit [facility] [address] [place] [address] Solitario Machado MD [address] [phone] Health Maintenance Due Date Last Done Comments Breast Cancer Screening 1955 Colorectal Cancer Screening: Annual FOBT 2004 Colorectal Cancer Screening: Colonoscopy 2004 Colorectal Cancer Screening: Sigmoidoscopy 2004 Pneumococcal Vaccine: 50+ Ye ars (2 of 2 - PCV) 01/26/2021 01/27/2020 Influenza Vaccine (#1) 2025 Pneumococcal Vaccine: Peds ( 0 to 5 Years) and At-Risk Patients (6 to 49 Years) Discontinued 01/27/2020 Hepatitis B Vaccine Aged Out No longe r eligible based on patient's age to complete this topic [place] [address] MCR ([id number]) JOSE CABRERA [phone] [place] [address] MCR ([id number]) JOSE CABRERA [phone] Care Teams Adult Health Clinical Nurse Specialist Relationship Specialty Start Date End Date Jennifer Ballard NP [address] [place] [address] PCP - General Nurse Practitioner 04/16/24
== END 2025-04-21 14:54 | disposition home or self-care (01) ==
LOC: HO.HSMS 13:40
PROVIDERS: PCP Nurse Practitioner Gerontology; Visit Provider Physician Assistant Medical
DX: R41.89 Other symptoms and signs involving cognitive functions and awareness (principal); R46.89 Other symptoms and signs involving appearance and behavior; G43.709 Chronic migraine without aura, not intractable, without status migrainosus
CPT/HCPCS: 99214

== ENCOUNTER → 2025-04-21 13:39 | Outpatient (BNVA) | payer OTHER, SELFPAY | PROVIDERS: PCP Nurse Practitioner Gerontology; Visit Provider Physician Assistant Medical | DX: G43.709 Chronic migraine without aura, not intractable, without status migrainosus (principal); R41.89 Other symptoms and signs involving cognitive functions and awareness; R46.89 Other symptoms and signs involving appearance and behavior | CPT/HCPCS: 99212 ==